=== PATIENT | female | born 1950 | race Caucasian/White ===

== ENCOUNTER 2017-02-02 17:25 | Emergency (ER) | payer OTHER ==
[~2017-02-02 17:25] MED LIST: ALPR0.5T PO; ASPI-482 PO; CYCL-331 PO; ESCI20TA PO; HYDR-2762 PO; LEVO50TA PO; ONDA4TAB10 SL; SUCR1TAB PO; TRAZ-90 PO; ZOLP10TA4 PO
--- NOTE | 2017-02-02 18:05 | PHYS DOC ---
Text Text Mechanical fall, with mid back/lumbar tenderness to palpation. No motor weakness. Possible acute compression fracture superior endplate of L1. Pain addressed. Recommend supportive care with PCP/orthopedic follow-up. (ORESTES ALEXIS DO) General Chief Complaint: BACK PAIN OR INJURY Stated Complaint: BACK PAIN; MECH FALL YESTERDAY Time Seen by MD: 17:45 Source: patient, family, old records Exam Limitations: no limitations Problems: (REDD CORLEY DO) Time Seen by MD: 18:51 Problems: (ORESTES ALEXIS DO) History of Present Illness Initial Comments Pt is 66/F to ED w/family c/o fall injury. Pt reports shortly before ED arrival she was descending stairs at home. Handrails not in place as family moving into residence. Family following pt down stairs, pt foot slipped off bottom step causing pt to pratfall. No antecedent arrhythmia/syncope sx, no dizziness, fall was mechanical in nature. No anticoagulation. Pt c/o midline low back and buttock pain. No prearrival treatment, has prior h/o compression fracture lumbar spine. No head trauma/KOROMA/ neck pain/bowel or bladder sx/focal weakness. No numbness/weakness. Occurred: just prior to arrival Severity: moderate Injuries/Pain Location: back, pelvis Context: slipped Loss of Consciousness: no loss of consciousness Modifying Factors: worse with jarring, worse with movement, improves with rest Associated Symptoms: other (REDD CORLEY DO) Allergies: Coded Allergies: diazepam (Verified Allergy, Unknown, 02/02/17) diclofenac (Verified Allergy, Unknown, 02/02/17) haloperidol (Unverified Allergy, Unknown, RASH, 10/27/14) lithium (Unverified Allergy, Unknown, 10/27/14) naproxen (Verified Allergy, Unknown, 02/02/17) zolpidem (Verified Allergy, Unknown, 02/02/17) divalproex sodium (Unverified Adverse Reaction, Unknown, GI UPSET , ) Uncoded Allergies: muscle relaxers (Allergy, Unknown, 02/02/17) Past Medical History Medical History: other (compression fracture, anxiety, depression, hypothyroid , chronic back pain, chronic nausea) Surgical History: noncontributory (REDD CORLEY DO) Social History Smoker: non-smoker Alcohol: none Drugs: none (REDD CORLEY DO) Review of Systems Constitutional: denies chills, denies diaphoresis, denies fever, denies malaise Respiratory: denies cough, denies shortness of breath Cardiovascular: denies chest pain, denies palpitations Gastrointestinal: denies abdominal pain, denies diarrhea, denies nausea, denies vomiting Genitourinary: denies dysuria, denies frequency, denies hematuria Musculoskeletal: see HPI Psychiatric/Neurological: see HPI, denies headache, denies numbness, denies paresthesia, denies weakness (REDD CORLEY DO) Physical Exam General Appearance: mild distress (moves gingerly as if in pain) Head: no evidence of injury Eyes: bilateral eye normal inspection, bilateral eye PERRL, bilateral eye EOMI Ears, Nose, Mouth, Throat: hearing grossly normal, no evidence of ENT injury, no dental injury Neck: non-tender, full range of motion, normal alignment Cardiovascular/Respiratory: normal peripheral pulses, normal breath sounds, no respiratory distress Gastrointestinal: non tender, soft Back: no CVA tenderness, decreased range of motion, muscle spasm, vertebral tenderness (lumbar) Extremities: no evidence of injury, non-tender, pelvis stable 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 See his documentation for imaging results/disposition. (REDD CORLEY DO) REDD CORLEY DO February 02, 2017 18:05 ORESTES ALEXIS DO February 02, 2017 21:43
--- NOTE | 2017-02-02 19:02 | RAD ---
CT LUMBAR SPINE WO CONTRAST dated 02/02/2017 6:38 PM Indication: FALL YESTERDAY, LOW BACK PAIN,PREVIOUS CT OF L-SPINE SENT Comparison: 10/27/2014 Technique: CT imaging was performed of the[lumbar spine], multiplanar reconstruction images submitted. One or more of the following individualized dose reduction techniques were utilized for this examination: 1. Automated exposure control 2. Adjustment of the mA and/or kV according to patient size 3. Use of iterative reconstruction technique Findings: There has been development of superior L1 compression fracture without osseous retropulsion, may be acute. There is superior compression fracture of T12 which was present previously, somewhat greater degree of height loss more anteriorly. There is negligible anterior spondylolisthesis L4-5. There is mild degenerative disease L3-4. There is multilevel lumbar facet hypertrophic change greater inferiorly. IMPRESSION: 1. Compared with the 2014 exam, there is now superior L1 compression fracture which may be acute. There is T12 compression fracture which was present previously. Electronically signed by: Bunny Fitch MD (02/02/2017 6:59 PM)
[2017-02-02] MEDS: oxyCODONE/APAP 7.5/325 1 TAB TABLET PO ONE ×2 (19:24→19:30)
[2017-02-02 19:35] VITALS: BP 126/81
--- NOTE | 2017-02-03 08:09 | RAD ---
EXAM: Bilateral hips and pelvis, 5 views. HISTORY: Fall. COMPARISON: None. FINDINGS: A frontal view of the pelvis and frontal and frog-leg views of both hips are obtained. There is no fracture, dislocation or subluxation. There is degenerative change at the lumbosacral junction. IMPRESSION: No acute osseous finding.
== END 2017-02-02 19:35 | disposition home or self-care (01) ==
LOC: ER 17:25
DX: M54.5 Low back pain (principal); G89.29 Other chronic pain; E03.9 Hypothyroidism, unspecified; Z88.6 Allergy status to analgesic agent; Z88.8 Allergy status to other drugs, medicaments and biological substances; W10.8XXA Fall (on) (from) other stairs and steps, initial encounter; Y93.89 Activity, other specified; Y99.8 Other external cause status; Y92.89 Other specified places as the place of occurrence of the external cause
CPT/HCPCS: 72131; 73521; 99284-25

== ENCOUNTER 2017-12-21 11:22 | Emergency (ER) | payer OTHER ==
[~2017-12-21] VITALS: Ht 167.6 cm; Wt 72.6 kg
[~2017-12-21 11:22] MED LIST changes: -ESCI20TA PO; +ESCITALOPRAM OX20 MG PO
--- NOTE | 2017-12-21 12:14 | PHYS DOC ---
Past History Past Medical History: Anxiety, Bipolar, Depression, Hypothyroid, Other Past Surgical History: Appendectomy, Cholecystectomy, Other Alcohol Use: None Drug Use: None Adult General Chief Complaint Chief Complaint: CONSTIPATION [facility] HPI 66-year-old female patient with history of depression and psychiatric problem and chronic constipation states she usually has bowel movements every other 2 days but for the last 3 days she didn't have bowel movement and complaining of abdominal pain and nausea without vomiting. Patient states she is passing lots of gas but unable to have any bowel movement. Patient rated her pain 7/10 and states she was seen by her primary care physician for UTI but did not get any medication. Patient states she takes several psychiatric medication and her psychiatric tapering her medication because of constipation. She denies taking pain medication. Patient is a poor historian. . Review of Systems Review of Systems Constitutional: Denies fever or chills [] Eyes: Denies change in visual acuity, redness, or eye pain [] HENT: Denies nasal congestion or sore throat [] Respiratory: Denies cough or shortness of breath [] Cardiovascular: No additional information not addressed in HPI [] GI: Reports abdominal pain, nausea, constipation, denies vomiting, bloody stools or diarrhea [] : Denies dysuria or hematuria [] Musculoskeletal: Denies back pain or joint pain [] Integument: Denies rash or skin lesions [] Neurologic: Denies headache, focal weakness or sensory changes [] Endocrine: Denies polyuria or polydipsia [] All other systems were reviewed and found to be within normal limits, except as documented in this note. Allergies Allergies Allergies Coded Allergies Type Severity Reaction Last Updated Verified diazepam Allergy Unknown 02/02/17 Yes diclofenac Allergy Unknown 02/02/17 Yes haloperidol Allergy Unknown RASH 10/27/14 No lithium Allergy Unknown 10/27/14 No naproxen Allergy Unknown 02/02/17 Yes zolpidem Allergy Unknown 02/02/17 Yes divalproex sodium Adverse Reaction Unknown GI UPSET 02/02/17 No Uncoded Allergies Type Severity Reaction Last Updated Verified muscle relaxers Allergy Unknown 02/02/17 Physical Exam Physical Exam Constitutional: Well nourished, mild distress, non-toxic appearance, anxious. [] HENT: Normocephalic, atraumatic, oropharynx moist Eyes: PERRLA, EOMI, conjunctiva normal, no discharge. [] Neck: Normal range of motion, no tenderness, supple, no stridor. [] Cardiovascular:Heart rate regular rhythm, no murmur [] Lungs & Thorax: Bilateral breath sounds clear to auscultation [] Abdomen: Bowel sounds hyperactive, soft, mild distention, no tenderness , no masses, no pulsatile masses. Rectal exam with present of manager communication showed no fecal impaction[] Skin: Warm, dry, no erythema, no rash. [] Back: No tenderness, no CVA tenderness. [] Extremities: No tenderness, no cyanosis, no clubbing, ROM intact, no edema. [] Neurologic: Alert and oriented X 3, normal motor function, normal sensory function, no focal deficits noted. [] Psychologic: Anxious, judgement normal, mood normal. [] Current Patient Data Vital Signs Vital Signs Date Time Temp Pulse Resp B/P (MAP) Pulse Ox O2 Delivery O2 Flow Rate FiO2 12/21/17 11:25 97.7 100 18 96 Room Air EKG EKG [] Radiology/Procedures Radiology/Procedures [] [address] [address] IMAGING REPORT Signed PATIENT: JENI LEI ACCOUNT: [id number] : 1950 LOCATION: ER AGE: 66 SEX: F EXAM STATUS: REG ER ORD. PHYSICIAN: SALOMON PALACIOS MD REASON: constipation and abdominal pain PROCEDURE: ACUTE ABDOMEN SERIES EXAM: Two view abdomen with one view chest HISTORY: Abdominal pain and constipation. COMPARISON: 10/27/2014. FINDINGS: A frontal view of the chest and supine/upright views of the abdomen are obtained. There are no confluent infiltrates. There is no pneumothorax or pleural effusion. The heart is not enlarged. 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 There is no pneumoperitoneum. There are no distended small bowel loops or significant air-fluid levels. Stool throughout the colon is consistent with constipation. Multiple small metallic densities project throughout the fecal stream. There is gas distally. Cholecystectomy clips are noted. IMPRESSION: 1. No confluent infiltrates. 2. Constipation. Multiple small metallic densities projecting throughout the fecal stream. Correlate for ingestions. DICTATED AND SIGNED BY: TED BENTON MD DATE: 12/21/17 1219 CC: SALOMON PALACIOS MD; NON,STAFF ~ Course & Med Decision Making Course & Med Decision Making Pertinent Labs and Imaging studies reviewed. (See chart for details) Evaluation of patient in ER showed 66-year-old female patient with complaining of constipation. Patient was anxious and was not able to give adequate history. UA was unremarkable. X-ray of abdomen and pelvis showed constipation and few metatarsals had been in extremity concern for foreign body. She denied swallowing any foreign body. Patient treated with magnesium citrate in ER and prescription for GoLYTELY was given. Patient instructed to follow with her psychiatric for anxiety and psychiatric problem. [] Dragon Disclaimer Dragon Disclaimer This electronic medical record was generated, in whole or in part, using a voice recognition dictation system. Departure Departure: Impression: Primary Impression: Constipation Additional Impression: Anxiety Disposition: HOME, SELF-CARE (At 1300) Condition: STABLE Referrals: NON,STAFF (PCP) Patient Instructions: Constipation, Adult, [id number] Additional Instructions: Drink plenty of liquids Follow-up with your primary care physician in 2-3 days Return to ER if not getting better Scripts Peg 3350/Na Sulf,Bicarb,Cl/Kcl (GOLYTELY SOLUTION) 4,000 Ml Soln.recon 4000 ML PO q30 minutes for 1 Day, [facility] Prov: SALOMON PALACIOS MD 12/21/17 Problem Qualifiers SALOMON PALACIOS MD Dec 21, 2017 12:14
[2017-12-21 12:22] LABS: BACTERIA,URINE 0 /HPF (0-FEW); BILIRUBIN,URINE NEG (NEG); CLARITY,URINE CLEAR; COLOR,URINE YELLOW; GLUCOSE,URINE NEG (NEG); HYALINE CASTS, URINE FEW /HPF; NITRITE,URINE NEG (NEG); RBC,URINE 0 /HPF (0-2); SQUAMOUS EPITHELIAL CELL,UR FEW /LPF; UROBILINOGEN,URINE 0.2 mg/dL (0.2 mg/dL); WBC,URINE 0 /HPF (0-4)
--- NOTE | 2017-12-21 12:23 | RAD ---
EXAM: Two view abdomen with one view chest HISTORY: Abdominal pain and constipation. COMPARISON: 10/27/2014. FINDINGS: A frontal view of the chest and supine/upright views of the abdomen are obtained. There are no confluent infiltrates. There is no pneumothorax or pleural effusion. The heart is not enlarged. 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 There is no pneumoperitoneum. There are no distended small bowel loops or significant air-fluid levels. Stool throughout the colon is consistent with constipation. Multiple small metallic densities project throughout the fecal stream. There is gas distally. Cholecystectomy clips are noted. IMPRESSION: 1. No confluent infiltrates. 2. Constipation. Multiple small metallic densities projecting throughout the fecal stream. Correlate for ingestions.
[2017-12-21] MEDS ORDERED: MAGNESIUM CITRATE 296 ML SOLUTION. ONE (12:49)
[2017-12-21] MEDS ORDERED: PEG4000S8 PO (12:58)
[2017-12-21 13:05] VITALS: BP 126/60
[2017-12-21] MEDS ORDERED: MAGNESIUM CITRATE 296 ML SOLUTION. PO ONE (13:15)
== END 2017-12-21 13:10 | disposition home or self-care (01) ==
LOC: ER 11:22
DX: K59.09 Other constipation (principal); F41.9 Anxiety disorder, unspecified; E03.9 Hypothyroidism, unspecified; F31.9 Bipolar disorder, unspecified; Z90.49 Acquired absence of other specified parts of digestive tract; Z88.8 Allergy status to other drugs, medicaments and biological substances
CPT/HCPCS: 74022; 81001; 99285-25

== ENCOUNTER 2018-04-12 10:32 | Emergency (ER) | payer OTHER ==
[~2018-04-12] VITALS: Ht 167.6 cm; Wt 77.5 kg
[2018-04-12 10:32] VITALS: BP 115/73
[~2018-04-12 10:32] MED LIST changes: +PEG4000S8 PO; +TRAZ-86 PO; -TRAZ-90 PO
[2018-04-12] MEDS ORDERED: HYDROcodone/APAP 10/325 1 TAB TABLET PO ONE (11:15)
--- NOTE | 2018-04-12 11:25 | RAD ---
Examination: 3 views of the right wrist and right thumb HISTORY: History of right thumb pain, right wrist pain COMPARISON: None available FINDINGS: The alignment of the first carpometacarpal joint, metacarpophalangeal joint, interphalangeal joint grossly appears unremarkable. There is no obvious acute fracture identified. Mild degenerative changes identified in the first metacarpophalangeal joint. Moderate degenerative changes identified in the first carpometacarpal joint. The alignment of the carpal bones grossly appears unremarkable. IMPRESSION: No acute osseous findings. Electronically signed by: Laureano Gracia MD (04/12/2018 11:21 AM) [facility]
--- NOTE | 2018-04-12 11:40 | PHYS DOC ---
Past History Past Medical History: Anxiety, Bipolar, Depression, Hypothyroid, Other Past Surgical History: Appendectomy, Cholecystectomy, Other Alcohol Use: None Drug Use: None Adult General Chief Complaint Chief Complaint: HAND PROBLEM HPI HPI 67-year-old right-handed female patient states she was weeding last week and since then has had pain in right wrist and thenar area that getting worse with movement. Patient denies focal neuro deficit, fall, fever and chills. Patient states she takes hydrocodone 10/325 for chronic pain without change of her right hand pain. Review of Systems Review of Systems Constitutional: Denies fever or chills [] Eyes: Denies change in visual acuity, redness, or eye pain [] HENT: Denies nasal congestion or sore throat [] Respiratory: Denies cough or shortness of breath [] Cardiovascular: No additional information not addressed in HPI [] GI: Denies abdominal pain, nausea, vomiting, bloody stools or diarrhea [] : Denies dysuria or hematuria [] Musculoskeletal: Reports back pain, joint pain [] Integument: Denies rash or skin lesions [] Neurologic: Denies headache, focal weakness or sensory changes [] Endocrine: Denies polyuria or polydipsia [] All other systems were reviewed and found to be within normal limits, except as documented in this note. Current Medications Current Medications Current Medications Medications (Trade) Dose Ordered Sig/Chago Start Time Stop Time Status Last Admin Dose Admin Acetaminophen/ Hydrocodone Bitart (Lortab 10/325) 1 tab 1X ONCE 04/12/18 11:15 04/12/18 11:16 DC 04/12/18 11:13 1 TAB Allergies Allergies Allergies Coded Allergies Type Severity Reaction Last Updated Verified diazepam Allergy Unknown 02/02/17 Yes diclofenac Allergy Unknown 02/02/17 Yes haloperidol Allergy Unknown RASH 10/27/14 No lithium Allergy Unknown 10/27/14 No naproxen Allergy Unknown 02/02/17 Yes zolpidem Allergy Unknown 02/02/17 Yes divalproex sodium Adverse Reaction Unknown GI UPSET 02/02/17 No Uncoded Allergies Type Severity Reaction Last Updated Verified muscle relaxers Allergy Unknown 02/02/17 Physical Exam Physical Exam Constitutional: Well nourished, mild distress, non-toxic appearance. [] HENT: Normocephalic, atraumatic Eyes: PERRLA, EOMI, conjunctiva normal, no discharge. [] Neck: Normal range of motion, no tenderness, supple, no stridor. [] Cardiovascular:Heart rate regular rhythm, no murmur [] Lungs & Thorax: Bilateral breath sounds clear to auscultation [] Skin: Warm, dry, no erythema, no rash. [] Extremities: Right wrist and fingers without deformity, limited range of motion with pain, no neurovascular deficit Neurologic: Alert and oriented X 3, normal motor function, normal sensory function, no focal deficits noted. [] Psychologic: Affect anxious, mood normal. [] Current Patient Data Vital Signs Vital Signs Date Time Temp Pulse Resp B/P (MAP) Pulse Ox O2 Delivery O2 Flow Rate FiO2 04/12/18 11:13 0 94 Room Air 04/12/18 10:32 98.2 81 EKG EKG [] Radiology/Procedures Radiology/Procedures [][address] [address] IMAGING REPORT Signed PATIENT: JENI LEI ACCOUNT: [id number] : 1950 LOCATION: ER AGE: 67 SEX: F EXAM STATUS: PRE ER ORD. PHYSICIAN: SALOMON PALACIOS MD REASON: thumb pain PROCEDURE: WRIST 3V RIGHT Examination: 3 views of the right wrist and right thumb HISTORY: History of right thumb pain, right wrist pain COMPARISON: None available FINDINGS: The alignment of the first carpometacarpal joint, metacarpophalangeal joint, interphalangeal joint grossly appears unremarkable. There is no obvious acute fracture identified. Mild degenerative changes identified in the first metacarpophalangeal joint. Moderate degenerative changes identified in the first carpometacarpal joint. The alignment of the carpal bones grossly appears unremarkable. IMPRESSION: No acute osseous findings. Electronically signed by: Laureano Gracia MD (04/12/2018 11:21 AM) [facility] DICTATED AND SIGNED BY: LAUREANO GRACIA MD DATE: 04/12/18 5672 CC: SALOMON PALACIOS MD; ANASTASIA BARRAZA MD ~ Course & Med Decision Making Course & Med Decision Making Pertinent Imaging studies reviewed. (See chart for details) Evaluation of patient in ER showed 67-year-old female patient with complaining of right hand and wrist pain after weeding one week ago. Patient had unremarkable physical exam except for mild anxiety and painful range of motion of wrist and thumb. X-ray of his and hand was unremarkable. Velcro wrist splint was applied by SPORTS TEAM MANAGER and patient treated with [place] 10 mg because she didn't take pain medication today and felt better. Patient instructed to continue home pain medication and follow with her primary care physician. [] Dragon Disclaimer Dragon Disclaimer This electronic medical record was generated, in whole or in part, using a voice recognition dictation system. Departure Departure: Impression: Primary Impression: Right wrist sprain Disposition: HOME, SELF-CARE (at 1138) Condition: IMPROVED Referrals: ANASTASIA BARRAZA MD (PCP) Patient Instructions: Wrist Sprain with [facility] Additional Instructions: Apply ice on the affected area Follow-up with your primary care physician in 3-5 days Return to ER if not getting better Continue our home hydrocodone 10/325 mg for pain SALOMON PALACIOS MD Apr 12, 2018 11:40
== END 2018-04-12 12:03 | disposition home or self-care (01) ==
LOC: ER 10:32
DX: S63.501A Unspecified sprain of right wrist, initial encounter (principal); G89.29 Other chronic pain; E03.9 Hypothyroidism, unspecified; Z88.8 Allergy status to other drugs, medicaments and biological substances; X58.XXXA Exposure to other specified factors, initial encounter; Y93.89 Activity, other specified; Y92.89 Other specified places as the place of occurrence of the external cause; Y99.8 Other external cause status
CPT/HCPCS: 29125; 73110; 73140; 99284

== ENCOUNTER 2018-10-23 21:15 | Emergency (ER) | payer OTHER ==
[~2018-10-23 21:15] MED LIST changes: -HYDR-2762 PO; +HYDR-2765 PO
--- NOTE | 2018-10-23 22:10 | ED.ADGEN ---
Past History Past Medical History: Anxiety, Bipolar, Depression, Hypothyroid, Other (TRUDY ONTIVEROS MD) Past Surgical History: Appendectomy, Cholecystectomy, Other (TRUDY ONTIVEROS MD) Alcohol Use: None Drug Use: None (TRUDY ONTIVEROS MD) Adult General Chief Complaint Chief Complaint depression (TRUDY ONTIVEROS MD) HPI HPI This is a very pleasant 67 years old female with multiple medical problem including hypertension, depression, bipolar who lives with her daughter and her daughter takes care of her patient here stating that she feels very depressed my daughter has total control over me I cannot do anything I developed a go back to live with her I think about suicide all the time (TRUDY ONTIVEROS MD) Review of Systems Review of Systems Constitutional: Denies fever or chills [] Eyes: Denies change in visual acuity, redness, or eye pain [] HENT: Denies nasal congestion or sore throat [] Respiratory: Denies cough or shortness of breath [] Cardiovascular: No additional information not addressed in HPI [] GI: Denies abdominal pain, nausea, vomiting, bloody stools or diarrhea [] : Denies dysuria or hematuria [] Musculoskeletal: Denies back pain or joint pain [] Integument: Denies rash or skin lesions [] Neurologic: Denies headache, focal weakness or sensory changes [] Endocrine: Denies polyuria or polydipsia [] All other systems were reviewed and found to be within normal limits, except as documented in this note. (TRUDY ONTIVEROS MD) Current Medications Current Medications Current Medications Medications (Trade) Dose Ordered Sig/Chago Start Time Stop Time Status Last Admin Dose Admin Lorazepam (Ativan) 1 mg 1X ONCE 10/24/18 07:00 10/24/18 07:01 DC 10/24/18 06:42 1 MG (ORESTES LEOS DO) Allergies Allergies Allergies Coded Allergies Type Severity Reaction Last Updated Verified chlorzoxazone Allergy Intermediate 10/24/18 Yes cyclobenzaprine Allergy Intermediate 10/24/18 Yes metaxalone Allergy Intermediate 10/24/18 Yes methocarbamol Allergy Intermediate 10/24/18 Yes orphenadrine Allergy Intermediate 10/24/18 Yes diazepam Allergy Unknown 02/02/17 Yes diclofenac Allergy Unknown 02/02/17 Yes haloperidol Allergy Unknown RASH 10/27/14 No lithium Allergy Unknown 10/27/14 No naproxen Allergy Unknown 02/02/17 Yes zolpidem Allergy Unknown 02/02/17 Yes divalproex sodium Adverse Reaction Unknown GI UPSET 02/02/17 No (ORESTES LEOS DO) Physical Exam Physical Exam Constitutional: Well developed, well nourished, no acute distress, non-toxic appearance. [] HENT: Normocephalic, atraumatic, bilateral external ears normal, oropharynx moist, no oral exudates, nose normal. [] Eyes: PERRLA, EOMI, conjunctiva normal, no discharge. [] Neck: Normal range of motion, no tenderness, supple, no stridor. [] Cardiovascular:Heart rate regular rhythm, no murmur [] Lungs & Thorax: Bilateral breath sounds clear to auscultation [] Abdomen: Bowel sounds normal, soft, no tenderness, no masses, no pulsatile masses. [] Skin: Warm, dry, no erythema, no rash. [] Back: No tenderness, no CVA tenderness. [] Extremities: No tenderness, no cyanosis, no clubbing, ROM intact, no edema. [] Neurologic: Alert and oriented X 3, normal motor function, normal sensory function, no focal deficits noted. [] Psychologic: , judgement normal, very depressed interiors (TRUDY ONTIVEROS MD) Current Patient Data Vital Signs Vital Signs Date Time Temp Pulse Resp B/P (MAP) Pulse Ox O2 Delivery O2 Flow Rate FiO2 10/23/18 22:13 98.3 82 18 97 Room Air (ORESTES LEOS DO) Lab Results Laboratory Tests Test 10/23/18 22:11 10/24/18 03:51 White Blood Count 8.6 x10^3/uL (4.0-11.0) Red Blood Count 4.30 x10^6/uL (3.50-5.40) Hemoglobin 14.1 g/dL (12.0-15.5) Hematocrit 41.0 % (36.0-47.0) Mean Corpuscular Volume 95 fL (79-100) Mean Corpuscular Hemoglobin 33 pg (25-35) Mean Corpuscular Hemoglobin Concent 35 g/dL (31-37) Red Cell Distribution Width 12.7 % (11.5-14.5) Platelet Count 280 x10^3/uL (140-400) Neutrophils (%) (Auto) 51 % (31-73) Lymphocytes (%) (Auto) 37 % (24-48) Monocytes (%) (Auto) 7 % (0-9) Eosinophils (%) (Auto) 5 % (0-3) H Basophils (%) (Auto) 1 % (0-3) Neutrophils # (Auto) 4.3 x10^3uL (1.8-7.7) Lymphocytes # (Auto) 3.1 x10^3/uL (1.0-4.8) Monocytes # (Auto) 0.6 x10^3/uL (0.0-1.1) Eosinophils # (Auto) 0.4 x10^3/uL (0.0-0.7) Basophils # (Auto) 0.1 x10^3/uL (0.0-0.2) Sodium Level 140 mmol/L (136-145) Potassium Level 3.5 mmol/L (3.5-5.1) Chloride Level 106 mmol/L (98-107) Carbon Dioxide Level 27 mmol/L (21-32) Anion Gap 7 (6-14) Blood Urea Nitrogen 20 mg/dL (7-20) Creatinine 1.4 mg/dL (0.6-1.0) H Estimated GFR (Cockcroft-Gault) 37.6 Glucose Level 96 mg/dL (70-99) Calcium Level 9.4 mg/dL (8.5-10.1) Ethyl Alcohol Level < 10 mg/dL (0-10) Urine Collection Type Unknown Urine Color Yellow Urine Clarity Clear Urine pH 5.0 Urine Specific [place] 1.020 Urine Protein Neg (NEG-TRACE) Urine Glucose (UA) Neg mg/dL (NEG) Urine Ketones (Stick) Trace mg/dL (NEG) Urine Blood Neg (NEG) Urine Nitrite Neg (NEG) Urine Bilirubin Neg (NEG) Urine Urobilinogen Dipstick 0.2 mg/dL (0.2 mg/dL) Urine Leukocyte Esterase Small (NEG) Urine RBC 0 /HPF (0-2) Urine WBC 5-10 /HPF (0-4) Urine Squamous Epithelial Cells Occ /LPF Urine Bacteria 0 /HPF (0-FEW) Urine Opiates Screen Neg (NEG) Urine Methadone Screen Neg (NEG) Urine Barbiturates Neg (NEG) Urine Phencyclidine Screen Neg (NEG) Urine Amphetamine/Methamphetamine Neg (NEG) Urine Benzodiazepines Screen Neg (NEG) Urine Cocaine Screen Neg (NEG) Urine Cannabinoids Screen Neg (NEG) Urine Ethyl Alcohol Neg (NEG) (ORESTES LEOS DO) EKG EKG [] (TRUDY ONTIVEROS MD) Radiology/Procedures Radiology/Procedures [] (TRUDY ONTIVEROS MD) Course & Med Decision Making Course & Med Decision Making Pertinent Labs and Imaging studies reviewed. (See chart for details) [] (TRUDY ONTIVEROS MD) Course & Med Decision Making The patient has been accepted to [facility] at the [facility]. has accepted the patient for transfer and admission to behavioral health. She will go by ambulance. (ORESTES LEOS DO) Final Impression Final Impression [] Problems: (1) Depression Qualifiers: (TRUDY ONTIVEROS MD) Dragon Disclaimer Dragon Disclaimer This electronic medical record was generated, in whole or in part, using a voice recognition dictation system. (TRUDY ONTIVEROS MD) TRUDY ONTIVEROS MD Oct 23, 2018 22:10 ORESTES LEOS DO Oct 24, 2018 09:30
[2018-10-23 22:13] VITALS: BP 150/74
[2018-10-23 22:23] LABS: BASO # 0.1 x10^3/uL (0.0-0.2); BASO % 1 % (0-3); EOS # 0.4 x10^3/uL (0.0-0.7); EOS % 5 % (0-3); HEMOGLOBIN 14.1 g/dL (12.0-15.5); LYMPH # 3.1 x10^3/uL (1.0-4.8); LYMPH % 37 % (24-48); MEAN CORPUSCULAR HEMOGLOBIN 33 pg (25-35); MEAN CORPUSCULAR HGB CONC 35 g/dL (31-37); MEAN CORPUSCULAR VOLUME 95 fL (79-100); MONO # 0.6 x10^3/uL (0.0-1.1); MONO % 7 % (0-9); NEUT # 4.3 x10^3uL (1.8-7.7); NEUT % 51 % (31-73); PLATELET COUNT 280 x10^3/uL (140-400); RED CELL DISTRIBUTION WIDTH 12.7 % (11.5-14.5); WHITE BLOOD COUNT 8.6 x10^3/uL (4.0-11.0)
[2018-10-23 22:34] LABS: CALCIUM 9.4 mg/dL (8.5-10.1); CREATININE 1.4 mg/dL (0.6-1.0); GFR 37.6; POTASSIUM 3.5 mmol/L (3.5-5.1)
[2018-10-24 04:28] LABS: BILIRUBIN,URINE NEG (NEG); CLARITY,URINE CLEAR; COLOR,URINE YELLOW; GLUCOSE,URINE NEG (NEG); NITRITE,URINE NEG (NEG); RBC,URINE 0 /HPF (0-2); UROBILINOGEN,URINE 0.2 mg/dL (0.2 mg/dL)
[2018-10-24 04:29] LABS: BACTERIA,URINE 0 /HPF (0-FEW); SQUAMOUS EPITHELIAL CELL,UR OCC /LPF
[2018-10-24 04:31] LABS: BARBITURATES NEG (NEG); BENZODIAZEPINES NEG (NEG); CANNABINOIDS NEG (NEG); COCAINE NEG (NEG); METHADONE NEG (NEG); OPIATES NEG (NEG); PHENCYCLIDINE NEG (NEG)
[2018-10-24 04:33] LABS: AMPHETAMINE/METHAMPHETAMINE NEG (NEG)
[2018-10-24] MEDS ORDERED: LORazepam 1 MG TABLET PO ONE (07:00)
== END 2018-10-24 10:47 ==
LOC: ER 21:15
DX: F32.9 Major depressive disorder, single episode, unspecified (principal); I10 Essential (primary) hypertension; F41.9 Anxiety disorder, unspecified; E03.9 Hypothyroidism, unspecified; Z88.8 Allergy status to other drugs, medicaments and biological substances; Z88.1 Allergy status to other antibiotic agents
CPT/HCPCS: 36415; 80048; 80307; 81001; 85025; 87086; 99285; G0480

== ENCOUNTER 2021-09-13 11:20 | Inpatient (IN) | payer MEDICARE, OTHER ==
[~2021-09-13] VITALS: Ht 167.6 cm; Wt 77.6 kg
[~2021-09-13 11:20] MED LIST changes: -CYCL-331 PO; +CYCL10TA19 PO; +TRAZ-125 PO; -TRAZ-86 PO
--- NOTE | 2021-09-13 13:30 | RAD ---
EXAMINATION: Chest radiograph. VIEWS: Single AP view of the chest COMPARISON: None INDICATION:70 years, Female, cough/sore throat. FINDINGS: Normal cardiomediastinal silhouette. Left basilar opacity. Patchy right basilar opacity. No pleural e ffusion or pneumothorax. No acute osseous process. IMPRESSION: Bibasilar opacities left greater than right suspicious for multifocal pneumonia. Recommend follow-up resolution. Electronically signed by: Aroldo Larsen DO (09/13/2021 1:28 PM) [id number]
[2021-09-13 13:46] LABS: INFLUENZA A PATIENT NEGATIVE (NEGATIVE); INFLUENZA B PATIENT NEGATIVE (NEGATIVE)
[2021-09-13] MEDS ORDERED: AZITHROMYCIN 500 MG in IV NORMAL SALINE 250ML 250 ML IV ONE (14:00)
--- NOTE | 2021-09-13 14:34 | PHYS DOC ---
Past History Past Medical History: Anxiety, Depression, Hypothyroid (DEBRA AMANDA DO) Past Surgical History: Appendectomy, Cholecystectomy (DEBRA AMANDA DO) Alcohol Use: None Drug Use: None (DEBRA AMANDA DO) General Adult EDM: Chief Complaint: COUGH HPI: HPI: 70 yo F past medical history of anxiety depression and hypothyroidism, presents to the ED with her biological daughter who she lives with, (patient consents to his/her/their knowledge and involvement in pts' medical care), complains of shortness of breath and dry cough for the past week. Daughter reports everyone in the house has been vaccinated for Covid but they have been passing around an upper respiratory infection between family members for the past month. Patient developed hoarseness today which is why they came to the emergency department. (DEBRA AMANDA DO) Review of Systems: Review of Systems: Constitutional: Denies fever or chills Eyes: Denies change in visual acuity HENT: Denies rhinorrhea or hearing loss Respiratory: Denies hemoptysis or increased work of breathing Cardiovascular: Denies chest pain or edema GI: Denies abdominal pain, nausea, vomiting, bloody stools or diarrhea : Denies dysuria or vaginal bleeding Musculoskeletal: Denies back pain or joint pain Integument: Denies rash or diaphoresis Neurologic: Denies focal weakness or sensory changes Endocrine: Denies polyuria or polydipsia Lymphatic: Denies swollen glands Psychiatric: Denies depression or anxiety (DEBRA AMANDA DO) Current Medications: Current Meds: Current Medications Medications (Trade) Dose Ordered Sig/Chago Start Time Stop Time Status Last Admin Dose Admin Azithromycin 500 mg/Sodium Chloride 250 ml @ 250 mls/hr 1X ONCE 09/13/21 14:00 09/13/21 14:59 Ceftriaxone Sodium 1 gm/ Sodium Chloride 50 ml @ 100 mls/hr 1X ONCE 09/13/21 14:00 09/13/21 14:29 DC (DEBRA AMANDA DO) Allergies: Allergies: Allergies Coded Allergies Type Severity Reaction Last Updated Verified chlorzoxazone Allergy Intermediate 10/24/18 Yes cyclobenzaprine Allergy Intermediate 10/24/18 Yes metaxalone Allergy Intermediate 10/24/18 Yes methocarbamol Allergy Intermediate 10/24/18 Yes orphenadrine Allergy Intermediate 10/24/18 Yes diazepam Allergy Unknown 02/02/17 Yes diclofenac Allergy Unknown 02/02/17 Yes haloperidol Allergy Unknown RASH 10/27/14 No lithium Allergy Unknown 10/27/14 No naproxen Allergy Unknown 02/02/17 Yes zolpidem Allergy Unknown 02/02/17 Yes divalproex sodium Adverse Reaction Unknown GI UPSET 02/02/17 No (DEBRA AMANDA DO) Physical Exam: PE: Constitutional: Well developed, well nourished, no acute distress, frail but non-toxic appearance. HENT: Normocephalic, atraumatic, Eyes: EOMI, conjunctiva normal, no discharge. Neck: Normal range of motion, supple, Cardiovascular: S1/2 present, regular rhythm Lungs & Thorax: Speaking in full sentences yet w/hoarse voice, bilateral equal chest rise, no tachypnea or increased work of breathing Abdomen: soft, no tenderness, Skin: Warm, dry, no erythema, no rash. [] Extremities: No tenderness, no cyanosis, no unilateral lower extremity edema Neurologic: Alert and oriented X 3, normal motor function, normal sensory function, no focal deficits noted. [] Psychologic: Affect normal, judgement normal, mood normal. [] ([facility]) Current Patient Data: Labs: Laboratory Tests Test 09/13/21 12:59 09/13/21 13:00 SARS-CoV-2 Antigen (Rapid) Negative (NEGATIVE) Group A Streptococcus Rapid Negative (NEGATIVE) Influenza Type A (Rapid) Negative (NEGATIVE) Influenza Type B (Rapid) Negative (NEGATIVE) Vital Signs: Vital Signs Date Time Temp Pulse Resp B/P (MAP) Pulse Ox O2 Delivery O2 Flow Rate FiO2 09/13/21 13:42 82 108/65 (79) 90 09/13/21 12:30 99.3 20 Room Air ([facility]) EKG: EKG: Sinus rhythm 82 bpm with APCs, no axis deviation, normal intervals, no T wave inversion, no ST elevation or ST depression (JOHNDEBRA DO) Radiology/Procedures: Radiology/Procedures: [] IMAGING REPORT Signed PATIENT: JENI LEI ACCOUNT: [id number] : 1950 LOCATION: ER AGE: 70 SEX: F EXAM STATUS: REG ER ORD. PHYSICIAN: DEBRA AMANDA DO REASON: cough/sore throat PROCEDURE: CHEST AP ONLY EXAMINATION: Chest radiograph. VIEWS: Single AP view of the chest COMPARISON: None INDICATION:70 years, Female, cough/sore throat. FINDINGS: Normal cardiomediastinal silhouette. Left basilar opacity. Patchy right basilar opacity. No pleural effusion or pneumothorax. No acute osseous process. IMPRESSION: Bibasilar opacities left greater than right suspicious for multifocal pneumonia. Recommend follow-up resolution. Electronically signed by: Alexx Larsen DO (09/13/2021 1:28 PM) [id number] DICTATED AND SIGNED BY: ALEXX LARSEN DO DATE: 09/13/21 1322 CC: MIKE BARRAZA; DEBRA AMANDA DO ~MTH0 0 (DEBRA AMANDA DO) Radiology/Procedures: [place] [address] IMAGING REPORT Signed PATIENT: JENI LEI ACCOUNT: [id number] : 1950 LOCATION: ER HOLD AGE: 70 SEX: F EXAM STATUS: ADM IN ORD. PHYSICIAN: DEBRA AMANDA DO REASON: soa, r/o pe, OMNI 350, 75ml PROCEDURE: CT ANGIOGRAPHY CHEST Study: CT CHEST WITH CONTRAST - PULMONARY ANGIOGRAM History: Shortness of air. Pulmonary embolism. Comparison: None recently. Technique: Helical CT of the chest performed after the administration of 75 cc Omnipaque 350 intravenous contrast and timed for angiographic evaluation of the pulmonary arteries per PE protocol. Coronal and sagittal 3D MIP reformations were obtained. One or more of the following individualized dose reduction techniques were utilized for this examination: 1. Automated exposure control 2. Adjustment of the mA and/or kV according to patient size 3. Use of iterative reconstruction technique. Findings: Pulmonary Arteries: No main, lobar or segmental pulmonary embolism. Main pulmonary artery caliber is within normal limits. Heart/Systemic Vasculature: No aortic aneurysm or dissection. The visualized great vessels are patent. No CT manifestations of right heart strain. Mediastinum: A few mildly prominent but not pathologically enlarged mediastinal/hilar lymph nodes. No pericardial effusion. Lungs: Scattered airspace infiltrates with a basilar predilection and greater on the left. Atelectasis is present as well. Bronchial wall thickening mainly to the lower lungs, particularly the left lower lobe and intermittent small airway opacification. No pleural effusion. Neck/Axilla/Body Wall: Dominant right thyroid lobe nodule exophytic posteriorly measures up to approximately 2.2 cm. 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 No axillary adenopathy. Upper Abdomen: Status post cholecystectomy. Probable hepatic steatosis. Bones: Scattered degenerative/chronic osseous findings. Miscellaneous: None. IMPRESSION: 1. No main, lobar or segmental pulmonary embolism. 2. Basilar predominant airspace infiltrates in addition to bronchial wall thickening and small airway opacification mainly to the lower lungs. An infectious etiology is suspected which could be atypical/viral or bacterial such as secondary to bronchitis. Correlate with patient history to help differentiate. 3. A few chronic observations outlined in the body of the report. Electronically signed by: HONEY LOPEZ MD (09/13/2021 5:44 PM) [facility] DICTATED AND SIGNED BY: HONEY LOPEZ MD DATE: 09/13/211726 CC: KALA HEATH MD; MIKE BARRAZA; DEBRA AMANDA DO ~MTH0 0 (MARIA TERESA SANCHEZ MD) Heart Score: C/O Chest Pain: No Risk Factors: Risk Factors: DM, Current or recent (<one month) smoker, HTN, HLP, family history of CAD, obesity. Risk Scores: Score 0 - 3: 2.5% MACE over next 6 weeks - Discharge Home Score 4 - 6: 20.3% MACE over next 6 weeks - Admit for Clinical Observation Score 7 - 10: 72.7% MACE over next 6 weeks - Early Invasive Strategies (DEBRA AMANDA DO) Course & Med Decision Making: Course & Med Decision Making Pertinent Labs and Imaging studies reviewed. (See chart for details) Concern for multifocal pneumonia requiring 1 to 2 L nasal cannula. Rapid Covid and flu negative. D-dimer elevated. CTA of the chest shows no pulm embolus. Due to need for oxygen will admit for further medical management. Patient stable time of admission agrees with this plan. I have spoken with the patient and/or caregivers. I have explained the patient's condition, diagnosis and treatment plan based on the information available to me at this time. I have answered the patient's and/or caregivers questions and answered any concerns. The patient and/or caregivers have as good an understanding of the patient's diagnosis, condition and treatment plan as can be expected at this point. The patient has been stabilized within the capability of the emergency department. The patient will be transported for further care and management or will be moved to an observation or inpatient service. I have communicated with the staff or medical practitioner taking over this patient's care. (DEBRA AMANDA DO) Course & Med Decision Making See A. [facility] chart for details prior shift change and admit . Impression: 1. Atypical Pneumonia- 2. Respiratory Failure- Hypoxia (MARIA TERESA SANCHEZ MD) Dragon Disclaimer: Harry Disclaimer: This electronic medical record was generated, in whole or in part, using a voice recognition dictation system. (DEBRA AMANDA DO) Departure Departure: Impression: Primary Impression: Multifocal pneumonia Additional Impression: On supplemental oxygen by nasal cannula Disposition: ADMITTED INPATIENT Admitting Physician: Kala Heath (DEBRA AMANDA DO) Condition: STABLE Referrals: MIKE BARRAZA (PCP) DEBRA AMANDA DO Sep 13, 2021 14:34 MARIA TERESA SANCHEZ MD Sep 13, 2021 18:40
[2021-09-13] MEDS ORDERED: IV NORMAL SALINE 50ML 50 ML ONE (15:18)
[2021-09-13] MEDS ORDERED: IV NORMAL SALINE 250ML 250 ML ONE (15:18)
[2021-09-13] MEDS ORDERED: AZITHROMYCIN 500 MG VIAL. IV ONE (15:19)
[2021-09-13] MEDS ORDERED: cefTRIAXone SODIUM 1 GM VIAL ONE (15:19)
[2021-09-13 15:25] LABS: BGAS PH 7.42 (7.35-7.45)
[2021-09-13 15:33] LABS: CALCIUM 8.8 mg/dL (8.5-10.1); CREATININE 1.1 mg/dL (0.6-1.0); GFR 49.2
[2021-09-13 15:45] LABS: ALBUMIN 2.9 g/dL (3.4-5.0); ALBUMIN/GLOBULIN RATIO 0.7 (1.0-1.7); TOTAL BILIRUBIN 0.7 mg/dL (0.2-1.0)
[2021-09-13 15:49] LABS: BASO % 0 % (0-3); EOS # 0.1 x10^3/uL (0.0-0.7); EOS % 1 % (0-3); HEMOGLOBIN 12.7 g/dL (12.0-15.5); LYMPH # 2.1 x10^3/uL (1.0-4.8); LYMPH % 16 % (24-48); MEAN CORPUSCULAR HEMOGLOBIN 31 pg (25-35); MEAN CORPUSCULAR HGB CONC 33 g/dL (31-37); MEAN CORPUSCULAR VOLUME 93 fL (79-100); MONO # 0.8 x10^3/uL (0.0-1.1); MONO % 6 % (0-9); NEUT # 9.9 x10^3uL (1.8-7.7); NEUT % 76 % (31-73); PLATELET COUNT 210 x10^3/uL (140-400); RED CELL DISTRIBUTION WIDTH 12.7 % (11.5-14.5); WHITE BLOOD COUNT 12.9 x10^3/uL (4.0-11.0)
--- NOTE | 2021-09-13 15:50 | EKG ---
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
[2021-09-13] MEDS ORDERED: IOHEXOL 350 MG/ML 100 ML VIAL. IV ONE (17:00)
--- NOTE | 2021-09-13 17:47 | RAD ---
Study: CT CHEST WITH CONTRAST - PULMONARY ANGIOGRAM History: Shortness of air. Pulmonary embolism. Comparison: None recently. Technique: Helical CT of the chest performed after the administration of 75 cc Omnipaque 350 intrave nous contrast and timed for angiographic evaluation of the pulmonary arteries per PE protocol. Marin l and sagittal 3D MIP reformations were obtained. One or more of the following individualized dose reduction techniques were utilized for this examinat ion: 1. Automated exposure control 2. Adjustment of the mA and/or kV according to patient size 3. Use of iterative reconstruction technique. Findings: Pulmonary Arteries: No main, lobar or segmental pulmonary embolism. Main pulmonary artery caliber is within normal limits. Heart/Systemic Vasculature: No aortic aneurysm or dissection. The visualized great vessels are patent . No CT manifestations of right heart strain. Mediastinum: A few mildly prominent but not pathologically enlarged mediastinal/hilar lymph nodes. No pericardial effusion. Lungs: Scattered airspace infiltrates with a basilar predilection and greater on the left. Atelectasi s is present as well. Bronchial wall thickening mainly to the lower lungs, particularly the left lowe r lobe and intermittent small airway opacification. No pleural effusion. Neck/Axilla/Body Wall: Dominant right thyroid lobe nodule exophytic posteriorly measures up to approx imately 2.2 cm. This was measured at 2 cm in 2015 suggesting a benign etiology given little change ov er time. No axillary adenopathy. Upper Abdomen: Status post cholecystectomy. Probable hepatic steatosis. Bones: Scattered degenerative/chronic osseous findings. Miscellaneous: None. IMPRESSION: 1. No main, lobar or segmental pulmonary embolism. 2. Basilar predominant airspace infiltrates in addition to bronchial wall thickening and small airwa y opacification mainly to the lower lungs. An infectious etiology is suspected which could be atypica l/viral or bacterial such as secondary to bronchitis. Correlate with patient history to help differen tiate. 3. A few chronic observations outlined in the body of the report. Electronically signed by: HONEY LOPEZ MD (09/13/2021 5:44 PM) [facility]
--- NOTE | 2021-09-13 18:20 | HP ---
DATE OF SERVICE: 09/13/2021 ADMIT DATE: 09/13/2021 ATTENDING PHYSICIAN: Dr. Hanna. CHIEF COMPLAINT: Cough and shortness of breath. HISTORY OF PRESENT ILLNESS: The patient is a 70-year-old female admitted through the ED with a 2-day history of cough and congestion. She is very hoarse and lost her voice. She has been vaccinated for COVID. She has had some sick family member. She developed hoarseness today. In the ED, her CT showed no blood clots; however, she has diffuse bibasilar interstitial infiltrates consistent with atypical pneumonia. Her COVID swab was negative. She is admitted with community-acquired pneumonia. She is a nonsmoker. PAST MEDICAL HISTORY: Significant for anxiety, depression, hypothyroidism. PAST SURGICAL HISTORY: Appendectomy, cholecystectomy. ALLERGIES: SHE HAS MULTIPLE DRUG ALLERGIES INCLUDING CYCLOBENZAPRINE, DIAZEPAM, DICLOFENAC, LITHIUM, HALDOL, METHOCARBAMOL, NAPROXEN, AND ZOLPIDEM. EXACT REACTIONS UNCLEAR. CURRENT MEDICATIONS: Current medicines that she was scheduled to take include the following: She was on scheduled alprazolam, aspirin, Lexapro, Carafate, ondansetron, and trazodone. SOCIAL HISTORY: She is a nonsmoker, nondrinker. She is retired from the [employer]. [facility]. Her primary care doctor [facility] of [facility]. FAMILY HISTORY: Mom at age 80 of complications of heart disease. Father of unknown causes in his mid 60s. REVIEW OF SYSTEMS: All other systems reviewed and turned out to be negative. She has had her COVID vaccine. PHYSICAL EXAMINATION: GENERAL: When I saw her, this is a pleasant, middle-aged female. INITIAL VITAL SIGNS: Showed a blood pressure of 121/64, pulse is 99 and regular. She was afebrile, oxygen saturation 88% on room air, 2 liters of supplemental oxygen was added. HEENT: Head is without trauma. Pupils are reactive. Sclerae nonicteric. The oropharynx is clear. NECK: Supple, no bruits. LUNGS: Coarse rhonchi bilaterally at the bases. CARDIOVASCULAR: Showed regular heart tones. ABDOMEN: Soft, obese. EXTREMITIES: Without edema or cyanosis. NEUROLOGIC FINDINGS: Focally intact. Speech is fluent, but her voice is very hoarse. PERTINENT LABORATORY STUDIES: Hemoglobin on admission was 12.7 g/dL, white count 12,900. Electrolytes within normal range. Creatinine is 1.1 mg/dL. Nonfasting blood sugar is normal. Troponin levels were normal. Transaminases were within normal range. CT of the chest as noted. ASSESSMENT: 1. A 70-year-old female with community-acquired pneumonia, bibasilar. She has had her COVID vaccine. 2. Mild hypoxemia. 3. Essential hypertension, currently normotensive. 4. History of underlying depression with anxiety. PLAN: 1. Admit to the inpatient unit, telemetry monitoring. 2. Empiric Rocephin and Zithromax has been started. 3. Supplemental oxygen. We should try to wean down. 4. Continue home meds. CARL DR: Jaycee TID: [id number] CC: Becka Alexander
[2021-09-13 20:00] VITALS: BP 108/58
[2021-09-13] MEDS ORDERED: LORA-434 PO (21:41)
[2021-09-13] MEDS ORDERED: HYDR50TA PO (21:41)
[2021-09-13] MEDS ORDERED: HYDR-2767 PO (21:41)
[2021-09-13] MEDS ORDERED: DULO60CA98 PO (21:41)
[2021-09-13] MEDS ORDERED: PRAM1TAB PO (21:41)
[2021-09-13] MEDS ORDERED: ARIP5TAB59 PO (21:41)
[2021-09-13] MEDS ORDERED: PROP20TA PO (21:41)
[2021-09-13] MEDS ORDERED: ESOM40CA47 PO (21:41)
[2021-09-13] MEDS ORDERED: BENZ1TAB5 PO (21:41)
[2021-09-13] MEDS ORDERED: LEVO75TA5 PO (21:41)
[2021-09-13 23:00] VITALS: BP 114/73
--- NOTE | 2021-09-14 01:06 | NUR ---
PT ADMITTED TO [facility] VIA EMS ACCOMPANIED BY ER STAFF MEMBER. PT AMBULATED FROM GURNEY TO BED VIA WALKER. PT IS AOX3 AND VERY [place]. POC DISCUSSED W/ VERBALIZED UNDERSTANDING. PT UNABLE TO PROVIDE HOME MEDICATION LIST OR MEDICAL HISTORY. PT STATES "MY DAUGHTER ROYAL THAT I LIVE WITH WILL KNOW." ROYAL THEN CALLED AND GAVE PT MEDICAL HISTORY AND HOME MEDICATION LIST.
[2021-09-14 06:03] VITALS: BP 111/65
--- NOTE | 2021-09-14 10:14 | PN ---
DATE: 09/14/2021 ATTENDING PHYSICIAN: Dr. Hanna. SUBJECTIVE: The patient is alert. Her hoarseness is slightly better, we can hear her voice improved. She is still quite weak. We are trying to wean her off of the oxygen. OBJECTIVE FINDINGS: VITAL SIGNS: Blood pressure this morning is 111/65, pulse is 80 and regular. She is afebrile. HEENT: Head is without trauma. Pupils are reactive. Sclerae nonicteric. The oropharynx is clear. NECK: Supple. LUNGS: Coarse rhonchi bilaterally. CARDIOVASCULAR: Regular heart tones. No gallop. ABDOMEN: Soft. EXTREMITIES: Without edema. NEUROLOGIC: Very weak, somewhat confused. X-ray noted. ASSESSMENT: 1. A 70-year-old female with a community-acquired pneumonia, bibasilar. 2. Hypoxemia. 3. Essential hypertension. 4. Underlying depression with anxiety. 5. Generalized debilitation. PLAN: 1. Continue antibiotics. 2. We will try to wean down supplemental oxygen. 3. Continue home medications. JENAE/MIGUEL DR: Jaycee TID: [id number]
[2021-09-14 10:58] VITALS: BP 106/68
[2021-09-14] MEDS: DULoxetine HCL 60 MG CAPSULE.DR PO SCH (11:30)
[2021-09-14] MEDS: ASPIRIN ENTERIC COATED 81 MG TABLET.DR. PO SCH (11:30)
[2021-09-14] MEDS ORDERED: ONDANSETRON PF 4 MG/2 ML VIAL. IVP PRN (11:30)
--- NOTE | 2021-09-14 12:46 | NUR ---
Nursing note PT in bed, reports weakness and difficulty breathing. Morning assessments done and documented. PT assessed by doctor and some PT medications restarted per doctors orders. Medications administered to PT and PT verbalized feeling better, and was able to ambulate to restroom. PT in bed, bed low call light within reach, eating launch. PT daughter called to fine out how the PT was doing and was given information on how the PT was doing. Will continue to monitor.
[2021-09-14] MEDS ORDERED: REMDESIVIR LOAD in IV NORMAL SALINE 250ML TV IV ONE (14:00)
[2021-09-14 15:15] VITALS: BP 108/67
[2021-09-14] MEDS: IPRATROPIUM/ALBUTEROL 20/100mcg/INH INHALER. INH SCH ×2 (16:00→20:00)
[2021-09-14] MEDS: methylPREDNISolone SOD SUCC PF 125 MG/2 ML VIAL. IV SCH (16:00)
[2021-09-14] MEDS: ENOXAPARIN 40 MG/0.4 ML SYRINGE. SQ SCH (16:00)
[2021-09-14] MEDS: ASCORBIC ACID 500 MG TABLET PO SCH (17:24)
[2021-09-14 19:19] VITALS: BP 127/77
[2021-09-14] MEDS: HYDROcodone/APAP 10/325 1 TAB TABLET PO PRN (20:15)
[2021-09-14] MEDS: FAMOTIDINE 20 MG TABLET PO SCH (20:16)
[2021-09-15 00:24] VITALS: BP 111/68
[2021-09-15 05:45] VITALS: BP 132/83
[2021-09-15] MEDS: ASCORBIC ACID 500 MG TABLET PO SCH ×2 (05:58→15:43)
[2021-09-15] MEDS: DULoxetine HCL 60 MG CAPSULE.DR PO SCH (08:33)
[2021-09-15] MEDS: IPRATROPIUM/ALBUTEROL 20/100mcg/INH INHALER. INH SCH ×4 (08:33→20:00)
[2021-09-15] MEDS: ASPIRIN ENTERIC COATED 81 MG TABLET.DR. PO SCH (08:34)
[2021-09-15] MEDS: PANTOPRAZOLE 40 MG TABLET. PO SCH (08:34)
[2021-09-15] MEDS: ZINC SULFATE 220 MG CAPSULE. PO SCH (08:34)
[2021-09-15] MEDS: FAMOTIDINE 20 MG TABLET PO SCH ×2 (08:34→20:35)
[2021-09-15] MEDS ORDERED: CHOLECALCIFEROL (VITAMIN D3) 50,000 UNIT CAPSULE PO SCH (09:00)
[2021-09-15] MEDS: HYDROcodone/APAP 10/325 1 TAB TABLET PO PRN (09:15)
[2021-09-15 10:47] VITALS: BP 123/71
[2021-09-15] MEDS: REMDESIVIR 100mg in NORMAL SALINE 250ML X 4 DAYS IV SCH (13:13)
[2021-09-15 15:03] VITALS: BP 106/71
[2021-09-15] MEDS: ENOXAPARIN 40 MG/0.4 ML SYRINGE. SQ SCH (15:43)
[2021-09-15] MEDS: methylPREDNISolone SOD SUCC PF 125 MG/2 ML VIAL. IV SCH (15:44)
--- NOTE | 2021-09-15 19:13 | PN ---
DATE: 09/15/2021 SUBJECTIVE: She is more alert since we simplified her meds. Her voice is coming back. She feels better actually. Her coronavirus swab PCR came back positive despite the fact that she has had 2 vaccines. Evidently, this is most likely the Omicron variant. OBJECTIVE FINDINGS: VITAL SIGNS: Her blood pressure this morning is 132/83 mmHg. Her oxygen saturation 96% on 2 liters and she is afebrile. HEENT: Head is without trauma. Pupils are reactive. Sclerae nonicteric. Oropharynx clear. NECK: Supple. LUNGS: Minimal rhonchi at bases. CARDIOVASCULAR: Regular heart tones. No gallop. ABDOMEN: Soft. EXTREMITIES: Without edema or cyanosis. NEUROLOGIC: Much more alert, less lethargic. She is still hard of hearing, but the hoarseness in the voice is coming back. ASSESSMENT: 1. A 70-year-old female with COVID pneumonia despite vaccination. 2. Mild hypoxemia, improving. 3. Essential hypertension. 4. History of underlying depression with anxiety. PLAN: 1. We did add remdesivir at the family's request. 2. Empiric Decadron. 3. Solu-Medrol. 4. Continue IV antibiotics. 5. We are trying to wean down her supplemental oxygen demands. JENAE/LEEANNA LOZANO: JENAE/silvio TID: [id number]
[2021-09-15] MEDS ORDERED: ALPRAZolam 0.25 MG TABLET PO ONE (19:45)
[2021-09-15 19:50] VITALS: BP 156/84
[2021-09-15 23:30] VITALS: BP_SYST 126; BP_SYST 136; BP_DIAS 74; BP_DIAS 84
[2021-09-16 06:31] VITALS: BP 138/83
[2021-09-16] MEDS: IPRATROPIUM/ALBUTEROL 20/100mcg/INH INHALER. INH SCH ×4 (08:00→20:00)
[2021-09-16] MEDS: PANTOPRAZOLE 40 MG TABLET. PO SCH (08:11)
[2021-09-16] MEDS: DULoxetine HCL 60 MG CAPSULE.DR PO SCH (08:11)
[2021-09-16] MEDS: ASPIRIN ENTERIC COATED 81 MG TABLET.DR. PO SCH (08:11)
[2021-09-16] MEDS: FAMOTIDINE 20 MG TABLET PO SCH ×2 (08:11→20:02)
[2021-09-16] MEDS: ASCORBIC ACID 500 MG TABLET PO SCH ×2 (08:11→20:02)
[2021-09-16] MEDS: ZINC SULFATE 220 MG CAPSULE. PO SCH (08:11)
--- NOTE | 2021-09-16 10:25 | PN ---
DATE: 09/16/2021 SUBJECTIVE: She is very hard of hearing, but her voice is back and she is feeling better. She is more alert. She was very lethargic on admission. OBJECTIVE FINDINGS: VITAL SIGNS: Blood pressure this morning is 138/83 mmHg. She is afebrile, pulse is 72 and regular, oxygen saturation 94% on 2 liters by nasal cannula. HEENT: Head is without trauma. Pupils are reactive. Oropharynx is clear. She is deaf. She is edentulous. Her dentures are in the process of being made. NECK: Supple. LUNGS: Minimal rhonchi at the bases. CARDIOVASCULAR: Showed regular heart tones. ABDOMEN: Obese, protuberant. No organomegaly. Normoactive bowel sounds. EXTREMITIES: Show no edema or cyanosis. NEUROLOGIC: Function focally intact. Very hard of hearing. LABORATORY DATA: CBC, chemistry panel are pending at this time. ASSESSMENT: 1. A 70-year-old female with COVID pneumonia, despite vaccination. She most likely has the Omicron variant. 2. Mild hypoxemia, improving. 3. Essential hypertension. 4. Underlying depression with anxiety. 5. Polypharmacy improved with coming off some of her sedating medications. 6. Profound presbycusis. PLAN: 1. Continue remdesivir at the family's request. Today is day 3. 2. Empiric Decadron. 3. Continue IV antibiotics. JAMES DR: Jaycee TID: [id number]
[2021-09-16 10:59] VITALS: BP 130/75
[2021-09-16 11:36] LABS: BASO % 0 % (0-3); EOS % 0 % (0-3); HEMOGLOBIN 11.7 g/dL (12.0-15.5); LYMPH # 1.7 x10^3/uL (1.0-4.8); LYMPH % 13 % (24-48); MEAN CORPUSCULAR HEMOGLOBIN 30 pg (25-35); MEAN CORPUSCULAR HGB CONC 33 g/dL (31-37); MEAN CORPUSCULAR VOLUME 94 fL (79-100); MONO # 1.1 x10^3/uL (0.0-1.1); MONO % 8 % (0-9); NEUT # 10.7 x10^3uL (1.8-7.7); NEUT % 79 % (31-73); PLATELET COUNT 248 x10^3/uL (140-400); RED BLOOD COUNT 3.85 x10^6/uL (3.50-5.40); RED CELL DISTRIBUTION WIDTH 12.8 % (11.5-14.5); WHITE BLOOD COUNT 13.5 x10^3/uL (4.0-11.0)
[2021-09-16 11:48] LABS: ALBUMIN 2.3 g/dL (3.4-5.0); ALBUMIN/GLOBULIN RATIO 0.5 (1.0-1.7); POTASSIUM 3.8 mmol/L (3.5-5.1); TOTAL BILIRUBIN 0.3 mg/dL (0.2-1.0); TOTAL PROTEIN 6.8 g/dL (6.4-8.2)
[2021-09-16] MEDS: REMDESIVIR 100mg in NORMAL SALINE 250ML X 4 DAYS IV SCH (13:36)
[2021-09-16 15:09] VITALS: BP 115/72
[2021-09-16] MEDS: ENOXAPARIN 40 MG/0.4 ML SYRINGE. SQ SCH (17:12)
[2021-09-16] MEDS: methylPREDNISolone SOD SUCC PF 125 MG/2 ML VIAL. IV SCH (17:12)
[2021-09-16 19:48] VITALS: BP 139/69
[2021-09-16] MEDS: ALPRAZolam 0.25 MG TABLET PO PRN (20:01)
[2021-09-16] MEDS: HYDROcodone/APAP 10/325 1 TAB TABLET PO PRN (20:01)
[2021-09-16] MEDS: LACTOBACILLUS RHAMNOSUS GG 1 CAPSULE. PO SCH (20:01)
--- NOTE | 2021-09-16 23:15 | NUR ---
Family Contact Pt's daughter Kassidy called concerned about pt condition. She questions the legitimacy of pt booster shot d/t relationship issues with her sister whom the pt lives with. She's worried about pt returning to live with her sister and requests assistance ensuring a home health nurse can check in with pt regularly, regardless if insurance will cover or not.
[2021-09-16 23:30] VITALS: BP 144/82
[2021-09-17 06:04] VITALS: BP 154/87
[2021-09-17] MEDS: ALPRAZolam 0.25 MG TABLET PO PRN (08:14)
[2021-09-17] MEDS: ASCORBIC ACID 500 MG TABLET PO SCH ×2 (08:14→20:20)
[2021-09-17] MEDS: ZINC SULFATE 220 MG CAPSULE. PO SCH (08:14)
[2021-09-17] MEDS: PANTOPRAZOLE 40 MG TABLET. PO SCH (08:14)
[2021-09-17] MEDS: ASPIRIN ENTERIC COATED 81 MG TABLET.DR. PO SCH (08:14)
[2021-09-17] MEDS: DULoxetine HCL 60 MG CAPSULE.DR PO SCH (08:14)
[2021-09-17] MEDS: LACTOBACILLUS RHAMNOSUS GG 1 CAPSULE. PO SCH ×2 (08:15→20:20)
[2021-09-17] MEDS: methylPREDNISolone SOD SUCC PF 125 MG/2 ML VIAL. IV SCH (08:15)
[2021-09-17] MEDS: FAMOTIDINE 20 MG TABLET PO SCH ×2 (08:15→20:20)
[2021-09-17] MEDS: IPRATROPIUM/ALBUTEROL 20/100mcg/INH INHALER. INH SCH ×4 (09:22→20:00)
--- NOTE | 2021-09-17 09:38 | PN ---
DATE: 09/17/2021 ATTENDING PHYSICIAN: Dr. Hanna. SUBJECTIVE: The patient is doing better. Her hoarseness has resolved. She is down to just 1 liter of supplemental oxygen and may not require at all. Her cough is improved and overall she is much more alert because I have cut back on a lot of her sedating meds. OBJECTIVE FINDINGS: VITAL SIGNS: Blood pressure this morning is 144/82. She is afebrile. Oxygen saturation 96% on 1 liter by nasal cannula. HEENT: Head is without trauma. Pupils are reactive. She is edentulous. NECK: Supple. LUNGS: Good breath sounds with minimal rhonchi. CARDIOVASCULAR: Regular heart tones. ABDOMEN: Soft. EXTREMITIES: Without edema. NEUROLOGIC FINDINGS: Much more alert. She is still hard of hearing. Today is her 3rd dose of remdesivir. ASSESSMENT: 1. A 70-year-old female with COVID pneumonia despite vaccination. She most likely has the Omicron variant. 2. Mild hypoxemia, improving. 3. Essential hypertension. 4. Underlying depression with anxiety. 5. Polypharmacy improving with stopping some of her medications. 6. Profound presbycusis. PLAN: 1. Continue remdesivir as severe as scheduled. 2. Empiric Decadron. 3. We will wean off oxygen. 4. Tentative discharge plans for early next week. JENAE/SHAWN DR: JENAE/silvio TID: [id number]
[2021-09-17 10:45] VITALS: BP 115/68
[2021-09-17] MEDS: REMDESIVIR 100mg in NORMAL SALINE 250ML X 4 DAYS IV SCH (14:56)
[2021-09-17 15:12] VITALS: BP 167/84
[2021-09-17] MEDS: ENOXAPARIN 40 MG/0.4 ML SYRINGE. SQ SCH (16:08)
[2021-09-17] MEDS: HYDROcodone/APAP 10/325 1 TAB TABLET PO PRN (18:20)
[2021-09-17 20:04] VITALS: BP 134/77
[2021-09-17 23:30] VITALS: BP 110/67
[2021-09-18 05:28] VITALS: BP 126/73
[2021-09-18] MEDS: IPRATROPIUM/ALBUTEROL 20/100mcg/INH INHALER. INH SCH (08:00)
[2021-09-18] MEDS: ASCORBIC ACID 500 MG TABLET PO SCH (08:08)
[2021-09-18] MEDS: PANTOPRAZOLE 40 MG TABLET. PO SCH (08:08)
[2021-09-18] MEDS: ASPIRIN ENTERIC COATED 81 MG TABLET.DR. PO SCH (08:08)
[2021-09-18] MEDS: FAMOTIDINE 20 MG TABLET PO SCH (08:08)
[2021-09-18] MEDS: LACTOBACILLUS RHAMNOSUS GG 1 CAPSULE. PO SCH (08:08)
[2021-09-18] MEDS: DULoxetine HCL 60 MG CAPSULE.DR PO SCH (08:08)
[2021-09-18] MEDS: ZINC SULFATE 220 MG CAPSULE. PO SCH (08:08)
--- NOTE | 2021-09-18 09:54 | DS ---
DATE OF DISCHARGE: 09/18/2021 ATTENDING PHYSICIAN: Dr. Hanna. FINAL DISCHARGE DIAGNOSES: 1. COVID pneumonia despite vaccination, I suspect the omicron variant. 2. Hypoxemia, resolved. The patient was having adequate saturation on room air at the time of discharge. 3. Essential hypertension. 4. Underlying depression with anxiety. 5. Polypharmacy resulting in obtundation. 6. Profound presbycusis. HISTORY AND PHYSICAL: The patient is a 70-year-old female with underlying depression and anxiety. She was getting her benzodiazepines and other sedating meds. She also was hypoxemic and she tested positive for coronavirus despite being vaccinated. I suspect the omicron variant. PHYSICAL EXAMINATION: Please see the dictated note. PERTINENT LABORATORY AND X-RAY STUDIES: Admission hemoglobin was 12.7 g/dL, white count 12,900. Electrolytes were stable showed a creatinine of 1.0 mg/dL, BUN 24, potassium 3.8 mEq, nonfasting blood sugar 117. Transaminases are normal. IMAGING STUDIES: Chest CT showed no pulmonary emboli, bibasilar airspace infiltrates consistent with atypical pneumonia. COURSE IN HOSPITAL: The patient was admitted. She was started on Solu-Medrol, supplemental oxygen and at the request of the family, I even started her on remdesivir for 3 days. She did well. Oxygen demands and requirements were titrated down where she had adequate room air saturation 92%. Her lungs were clear. Her sensorium cleared after we stopped a lot of her sedating meds. On the 6th hospital day, her vital signs were quite stable and she wanted to go home. I felt this is reasonable. I wrote scripts therefore for the patient for prednisone 40 mg p.o. daily for 7 more days and stop. Her other home meds are basically unchanged. She will continue her aspirin daily, Cymbalta 60 mg daily, omeprazole, hydrocodone p.r.n., Synthroid 125 mcg daily, pramipexole daily, Carafate and Ambien 10 mg at bedtime. For now, I stopped her alprazolam, Abilify, benztropine, Lexapro since she did not need another SSRI. Hydroxyzine, lorazepam, Zofran, and trazodone doses, these can be restarted by her primary care doctor and psychiatrist when she is stable. She lives with her daughter. She has adequate home care. She was discharged then in stable condition with explicit written and followup care. Total discharge time spent [address]: Jaycee TID: [id number] CC: Becka Alexander
[2021-09-18 11:19] VITALS: BP 129/79
--- NOTE | 2021-09-18 11:45 | NUR ---
PATIENT IS DISCHARGED HOME WITH HOME HEALTH. PTS IV IS REMOVED AND PRESCRIPTION FOR PREDNISONE WRITEN FOR PT. PT IS GIVEN ALL DISCHARGE DAND FOLLOW UP INSTRUCTIONS. PT IS ESCORTED OFF OF UNIT ACCOMPANIED BY STAFF.
== END 2021-09-18 11:45 | disposition home or self-care (01) | DRG 177 ==
LOC: ER 11:20 → ER HOLD 17:29 → 1 SOUTH 19:34
PROVIDERS: ADMIT Hospitalist; ATTEND Hospitalist
PROC: XW033E5 Introduction of Remdesivir Anti-infective into Peripheral Vein, Percutaneous Approach, New Technology Group 5 (ICD-10-PCS; principal; 2021-09-14)
DX: U07.1 COVID-19 (principal); J12.82 Pneumonia due to coronavirus disease 2019; J96.01 Acute respiratory failure with hypoxia; J15.9 Unspecified bacterial pneumonia; J15.6 Pneumonia due to other Gram-negative bacteria; E03.9 Hypothyroidism, unspecified; F41.8 Other specified anxiety disorders; H91.10 Presbycusis, unspecified ear; I10 Essential (primary) hypertension; Z90.49 Acquired absence of other specified parts of digestive tract; Z88.8 Allergy status to other drugs, medicaments and biological substances
CPT/HCPCS: 36415; 36600; 71045; 71275; 80053; 82550; 82803; 82947; 83605; 83880; 84484; 85025; 85379; 87040; 87070; 87426; 87804; 87880; 93005; 94640; 96365; 96366; 96367; J0456; J0696; J1650; J2930; J7050; Q9967; U0003; 99285-25